=== PATIENT | male | born 2000 | race African-American/Black ===

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

== ENCOUNTER 2021-01-26 23:37 | Emergency (ER) | payer OTHER ==
[~2021-01-26] VITALS: Ht 172.7 cm; Wt 68.0 kg
[~2021-01-26 23:37] MED LIST: AZITHROMYCIN500 MG PO
[2021-01-26 23:58] VITALS: BP 134/77
[2021-01-27] MEDS ORDERED: DOXYCYCLINE 10100 MG PO (00:24)
[2021-01-27] MEDS ORDERED: FLAGYL500 M1 PO (00:24)
[2021-01-27] MEDS ORDERED: CIPROFLOXACIN500 M1 PO (11:31)
[2021-01-27] MEDS ORDERED: AZITHROMYCIN500 MG PO (11:31)
== END 2021-01-27 01:15 | disposition home or self-care (01) ==
LOC: ER 23:37
PROVIDERS: Emergency Medicine
DX: N34.2 Other urethritis (principal); F17.210 Nicotine dependence, cigarettes, uncomplicated; Z91.018 Allergy to other foods